=== PATIENT | female | born 1950 | race Caucasian/White ===

== ENCOUNTER 2017-02-19 11:19 | Observation (INO) | payer OTHER ==
[~2017-02-19] VITALS: Ht 160 cm; Wt 104.3 kg
[2017-02-19] VITALS (10 sets, daily range): BP systolic 90–161; BP diastolic 54–85
[~2017-02-19 11:19] MED LIST: ALLO300T PO; ASCO100T4 PO; ASPI-630 PO; ATEN25TA PO; ATOR20TA PO; CA C1TAB38 PO; CHOL200044 PO; CYAN100072 PO; HYDR-2758 PO; HYDR-965 PO; LACT1CAP8 PO; METF500T4 PO; MULT1TAB6 PO; NAPR500T8 PO; OMEG1CAP28 PO; PROAIR HFA8.5 GM IH; VIT1TABL34 PO
[2017-02-19] MEDS ORDERED: IV NORMAL SALINE 1000ML BAG 1,000 ML IV SCH (11:34)
[2017-02-19] MEDS ORDERED: BACITRACIN 50,000 UNIT in IV NORMAL SALINE 250ML 250 ML IRR SCH (11:45)
[2017-02-19 11:54] LABS: HEMATOCRIT 45.6 % (36.0-47.0); HEMOGLOBIN 15.2 g/dL (12.0-15.5); RED BLOOD COUNT 4.86 x10^6/uL (3.50-5.40); RED CELL DISTRIBUTION WIDTH 13.7 % (11.5-14.5); WHITE BLOOD COUNT 11.2 x10^3/uL (4.0-11.0)
[2017-02-19 11:59] LABS: PROTHROMBIN TIME PATIENT 12.3 SEC (11.7-14.0)
[2017-02-19] MEDS ORDERED: LOSA50TA6 PO (12:06)
[2017-02-19] MEDS ORDERED: METO25TA4 PO (12:06)
--- NOTE | 2017-02-19 13:09 | EKG ---
[facility] [address] [place] [address] Test Date: 2017-02-19 Test Time: 12:35:38 Pat Name: BELINDA CARRENO Department: Room: Gender: F Bottling Room Worker: JESSICA : 1950 Requested By: WILL HERNANDEZ Order Number: [id number] Reading MD: Measurements Intervals [place] Rate: 75 P: 46 VT: 162 QRS: 20 QRSD: 84 T: 36 QT: 382 QTc: 429 Interpretive Statements SINUS RHYTHM NO SPECIFIC ECG ABNORMALITIES RI6.01 No previous ECG available for comparison
[2017-02-19] MEDS ORDERED: LIDOCAINE 2%/EPI 1:100,000 20 ML VIAL. ONE (13:50)
[2017-02-19] MEDS ORDERED: fentaNYL PF VIAL 250 MCG/5 ML VIAL ONE (14:07)
[2017-02-19] MEDS ORDERED: MIDAZOLAM HCL/PF 5 MG/5 ML VIAL. ONE (14:07)
[2017-02-19] MEDS ORDERED: MIDAZOLAM HCL/PF 5 MG/5 ML VIAL. IV ONE (14:45)
[2017-02-19] MEDS ORDERED: LIDOCAINE 2%/EPI 1:100,000 20 ML VIAL. IJ ONE (14:45)
[2017-02-19] MEDS ORDERED: fentaNYL PF VIAL 250 MCG/5 ML VIAL IV ONE (14:45)
[2017-02-19] MEDS ORDERED: MIDAZOLAM HCL/PF 2 MG/2 ML VIAL. ONE (14:54)
[2017-02-19] MEDS ORDERED: BACITRACIN 50,000 UNIT in IV NORMAL SALINE 250ML 250 ML IRR ONE (15:15)
[2017-02-19] MEDS ORDERED: HYDR-2758 PO (15:19)
[2017-02-19] MEDS ORDERED: MIDAZOLAM HCL/PF 2 MG/2 ML VIAL. IV ONE (15:30)
--- NOTE | 2017-02-19 16:26 | PDOC ---
MODERATE SEDATION ASSESSMENT RISKS/ALTERNATIVES Risks/Alternatives Risks and alternatives of this type of sedation and procedure discussed with: RISK/ALTERNATIVES: Patient H & P ON CHART H & P H & P on chart and reviewed for co-morbid conditions and appropriate labs. H&P ON CHART: Yes STATUS PREG STATUS ASSESSED: N/A MEDS/ALLERGIES REVIEWED Meds/Allergies Reviewed Medications and Allergies including time and route of recently administered narcotics and sedatives. MEDS/ALLERGIES REVIEWED: Yes ASA RATING ASA RATING: II AIRWAY ASSESSMENT Airway Assessment Airway patency, oral function limitations, presence of caps, crowns, dentures, partials, and ability to extend neck assessed. AIRWAY ASSESSMENT: Yes MALLAMPATI SCORE MALLAMPATI SCORE: II PRE-SEDATION ASSESSMENT PRE-SEDATION ASSESSMENT: Yes WILL HERNANDEZ MD Feb 19, 2017 16:26
--- NOTE | 2017-02-19 16:36 | CARD ---
APPROVED REPORT PROCEDURES Successful implantation of Biotronik dual-chamber permanent pacemaker INDICATIONS Sick sinus syndrome with significant pauses PROCEDURE After explaining the risks, benefits, and alternative options, informed consent was obtained from the patient. The patient was brought to the cardiac catheterization lab and the left chest and shoulder were prepp ed and draped in a sterile manner. 30 mL of 2% lidocaine was infiltrated into the skin and subcutaneous tissues for local anesthesia. An incision was made over the left infraclavicular fossa and using blunt dissection and cautery a pacem geraldo pocket was created. Venous access was obtained in the left subclavian vein and 8 and 6 Bengali sh eaths were inserted. Subsequently, a Biotronik bipolar active fixation right ventricular lead model Solia, serial #[id number] was advanced under fluoroscopy guidance and the tip was positioned in the right ventricle apex. Fol lowing this, a Biotronik bipolar active fixation right atrial lead model solia serial #[id number] was p ositioned in the right atrial appendage under fluoroscopy guidance. The leads were secured into place and attached to a Biotronik dual-chamber permanent pacemaker generator model Etrinsa 8 DR-T, serial #[id number]. This was placed in the pocket was subsequently closed in 3 layers. Hemostasis was secured. The right ventricular lead showed a sensing amplitude of 10.6 mV, impedance of 720 ohms and a thresho ld of 1 V. The right atrial lead showed a sensing amplitude of 4.7 mV, impedance of 745 ohms and a th reshold of 0.9 V. Patient tolerated the procedure well. There were no immediate complications. CONCLUSION Successful implantation of Biotronik dual-chamber permanent pacemaker for symptomatic sick sinus synd jojo.
--- NOTE | 2017-02-19 17:06 | RAD ---
Indication post cardiac pacing device placement. A single view of the chest was obtained. Comparison is made to an examination 01/22/2008. There is mild cardiomegaly. There is no gross congestive heart failure. A consolidated pneumonia is not seen. There is a bipolar cardiac pacing device. No complication is seen and specifically there is no evidence of pneumothorax. IMPRESSION: Bipolar polar cardiac pacing device. No complication seen. No focal process is seen in the chest. Moderate enlargement of the cardiac silhouette
[2017-02-19] MEDS: HYDROcodone/APAP 5/325MG 1 TAB TABLET PO PRN ×2 (20:01→21:23)
[2017-02-20] MEDS: HYDROcodone/APAP 5/325MG 1 TAB TABLET PO PRN ×2 (01:35→07:59)
[2017-02-20 03:30] VITALS: BP 179/87
[2017-02-20 07:00] VITALS: BP 170/85
[2017-02-20 08:50] VITALS: BP 170/85
[2017-02-20] MEDS ORDERED: LOSARTAN POTASSIUM 50 MG TABLET. PO SCH (09:00)
[2017-02-20] MEDS ORDERED: METOPROLOL TART IMMED RELEASE 25 MG TABLET. PO SCH (09:00)
--- NOTE | 2017-02-20 09:05 | RAD ---
PA AND LATERAL CHEST RADIOGRAPH Clinical Indication: 1 day post pacemaker implantation. Comparison: AP chest 02/19/2017. Findings: Left chest dual chamber pacer. Stable cardiomegaly. Pulmonary vasculature is normal. The lungs are clear. No pleural effusion or pneumothorax is seen. There is no acute bone abnormality. IMPRESSION: No acute cardiopulmonary process.
--- NOTE | 2017-02-20 09:28 | PDOC3 ---
KWABENA SENIOR DELIVERY ARCHITECT 02/20/17 0928: Discharge Summary Visit Information Date of Admission: Feb 19, 2017 Date of Discharge: Feb 20, 2017 Admitting Diagnosis Comment: 1. 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 HTN, benign essential 4. HLD 5. fibromyalgia 6. tobacco abuse Final Diagnosis 1. 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 HTN, benign essential 4. HLD 5. fibromyalgia 6. tobacco abuse Brief Hospital Course Allergies Allergies Coded Allergies Type Severity Reaction Last Updated Verified No Known Drug Allergies 09/20/14 No Vital Signs Vital Signs Date Time Temp Pulse Resp B/P (MAP) Pulse Ox O2 Delivery O2 Flow Rate FiO2 02/20/17 08:50 170/85 02/20/17 07:59 Room Air 02/20/17 07:00 97.7 113 19 94 1.5 97.7 Lab Results Laboratory Tests Test 02/19/17 11:40 White Blood Count 11.2 x10^3/uL (4.0-11.0) Red Blood Count 4.86 x10^6/uL (3.50-5.40) Hemoglobin 15.2 g/dL (12.0-15.5) Hematocrit 45.6 % (36.0-47.0) Mean Corpuscular Volume 94 fL (79-100) Mean Corpuscular Hemoglobin 31 pg (25-35) Mean Corpuscular Hemoglobin Concent 33 g/dL (31-37) Red Cell Distribution Width 13.7 % (11.5-14.5) Platelet Count 305 x10^3/uL (140-400) Prothrombin Time 12.3 SEC (11.7-14.0) Prothromb Time International Ratio 1.0 (0.8-1.1) Activated Partial Thromboplast Time 29 SEC (24-38) Laboratory Tests Test 02/19/17 11:40 White Blood Count 11.2 x10^3/uL (4.0-11.0) Red Blood Count 4.86 x10^6/uL (3.50-5.40) Hemoglobin 15.2 g/dL (12.0-15.5) Hematocrit 45.6 % (36.0-47.0) Mean Corpuscular Volume 94 fL (79-100) Mean Corpuscular Hemoglobin 31 pg (25-35) Mean Corpuscular Hemoglobin Concent 33 g/dL (31-37) Red Cell Distribution Width 13.7 % (11.5-14.5) Platelet Count 305 x10^3/uL (140-400) Prothrombin Time 12.3 SEC (11.7-14.0) Prothromb Time International Ratio 1.0 (0.8-1.1) Activated Partial Thromboplast Time 29 SEC (24-38) Brief Hospital Course Ms. Collins is a 67 old female with SSS with significant pauses of at least 3.5 seconds demonstrated on Holter monitoring done for palpitations. ? if related to KUSHAL and patient reporting dizziness symptoms during the night. PPM implantation advised and R/B/A discussed. Patient elected to proceed with PPM implantation and underwent implantation of Biotronik Etrinsa 8 DR-T dual chamber pacemaker on 02/19/2017. Monitored overnight without events. Interrogation this a.m. demonstrated no significant changes in lead impedances. CXR without ptx this a.m. Dressing removed from wound and site C/D/I without ecchymosis, edema and minimal erythema; steri-strips intact. PPM precautions and after-care discussed with patient. Discharge Information Condition at Discharge: Stable Follow Up: Weeks (one week with wound check; PCP in 7 - 10 days) Disposition/Orders: D/C to Home Scheduled Allopurinol (Allopurinol), 300 MG PO DAILY, (Reported) Atorvastatin Calcium (Lipitor), 1 TAB PO DAILY, (Reported) Losartan Potassium (Losartan Potassium), 50 MG PO BID, (Reported) Metformin Hcl (Metformin Hcl), 1 TAB PO DAILY, (Reported) Metoprolol Tartrate (Metoprolol Tartrate), 25 MG PO BID, (Reported) Scheduled PRN Hydrocodone Bit/Acetaminophen (Hydrocodone-Apap 5-325 ), 2 TAB PO QHS PRN for PAIN, (Reported) Patient Instructions Patient Instructions Must know & what to expect after device implant: 1. Your surgical dressing should be removed prior to discharge from the hospital, but allow the steri- strips to fall off naturally. 2. Activity restrictions: DO NOT raise arm above shoulder level, lift anything heavier than a gallon of milk, and no push or pull motions such as vacuuming/lawn mowing, no swinging motions (golf), etc for 4 weeks. 3. It is OK to use a cell phone or other electronic devices just be sure you do not store it in a breast pocket on the side where the device was placed. 4. Device will be interrogated prior to your discharge from the hospital and then every 3 months for defibrillators and every 6 months for pacemakers. You may be asked to have your device checked remotely from home as well, but this will depend on your particular physicians preference. 5. You may remove the arm immobilizer the day after device placement. Wear the arm immobilizer/splint at night (during sleep times) for 2 week to prevent unintended arm movement that can cause lead dislodgement. 6. Do not drive for one week as the task of driving may lead to unintended arm motion that may cause lead dislodgement. The seatbelt will also rub against the incision site & cause irritation. 7. It is our recommendation that you utilize Tylenol at home for pain control. You need to call our office if you are having uncontrollable pain at the incision site. 8. Keep your incision clean and dry. It is OK to shower. DO NOT submerge in bath, pool, or hot tub, until cleared by your doctor, as this could lead to increase risk of infection.. It is OK to use regular soap just do not scrub the incision site. Water spray from shower should not directly hit the incision. Be sure to blot dry not rub. 9. Inspect your incision daily. If you notice any increased redness, swelling , or drainage, or if you start running a fever, call the office immediately. The number is [phone]. 10. For women, if you need to protect against irritation from the bra straps, you can place a piece of gauze over the incision site for cushion. Please be sure to tape it loosely to allow air to the site & remove the gauze when you remove the bra. 11. Be sure to carry your device identification information card in your wallet/purse at all times. 12. It is OK to go through security at the airport with your device, but be sure to let the TSA know prior to proceeding as the security settings change depending on varying factors. Please do whatever is requested by security at that time. 13. Some of the newer devices may be MRI compatible but, currently, the use of these devices is not widespread, so you likely will not be able to have an MRI. Please clarify this with your physician. Call the office at [phone] for any questions or concerns. LORELEI ROYAL MD 02/20/17 1007: Discharge Summary Brief Hospital Course Brief Hospital Course Pt. seen and examined. Agree with above GLOBAL RISK MANAGEMENT DIRECTOR note. 67 y.o woman with SSS presented for pacer implant. Did well overnight. No acute issues. L shoulder incision c/d/i. CXR reviewed. atrial lead with a little bit of lead slack loss but interrogation wnl. Ok to DC today. Discharge Information Scheduled Allopurinol (Allopurinol), 300 MG PO DAILY, (Reported) Atorvastatin Calcium (Lipitor), 1 TAB PO DAILY, (Reported) Losartan Potassium (Losartan Potassium), 50 MG PO BID, (Reported) Metformin Hcl (Metformin Hcl), 1 TAB PO DAILY, (Reported) Metoprolol Tartrate (Metoprolol Tartrate), 25 MG PO BID, (Reported) Scheduled PRN Hydrocodone Bit/Acetaminophen (Hydrocodone-Apap 5-325 ), 2 TAB PO QHS PRN for PAIN, (Reported) KWABENA SENIOR APRN Feb 20, 2017 09:28 LORELEI ROYAL MD Feb 20, 2017 10:07
== END 2017-02-20 11:35 | disposition home or self-care (01) ==
LOC: CCL 11:19 → 2 NORTH 14:15
PROVIDERS: ADMIT Internal Medicine Cardiovascular Disease; ATTEND Internal Medicine Cardiovascular Disease
DX: I49.5 Sick sinus syndrome (principal); E11.49 Type 2 diabetes mellitus with other diabetic neurological complication; I10 Essential (primary) hypertension; E78.5 Hyperlipidemia, unspecified; M79.7 Fibromyalgia; Z72.0 Tobacco use
CPT/HCPCS: 33208; 36415; 71010; 71020; 85027; 85610; 85730; 93005; 96365; 96366; 96368; 96375; 99152; 99153; C1785; C1892; C1898; G0378; G0379; J0690; J2250; J3010; J3490; J7030; J7050

== ENCOUNTER → 2017-03-27 | Outpatient (CLI) | payer OTHER ==
[~2017-03-27] MED LIST changes: +LOSA50TA6 PO; +METO25TA4 PO
--- NOTE | 2017-03-29 08:20 | RAD ---
DATE: 03/27/2017 EXAM: DIGITAL SCREEN BILAT W/CAD HISTORY: Routine screening COMPARISON: 01/30/2012 This study was interpreted with the benefit of Computerized Aided Detection (CAD). The breast parenchyma is primarily fatty replaced. Breast parenchyma level density A. FINDINGS: No new or enlarging breast densities are seen. There are a few stable microcalcifications in the right breast. No suspicious microcalcifications have developed. IMPRESSION: Stable mammograms without evidence of malignancy. BI-RADS CATEGORY: 2 BENIGN FINDING(S) RECOMMENDED FOLLOW-UP: 12M 12 MONTH FOLLOW-UP PQRS compliance statement: Patient information was entered into a reminder system with a target due date for the next mammogram. Mammography is a sensitive method for finding small breast cancers, but it does not detect them all and is not a substitute for careful clinical examination. A negative mammogram does not negate a clinically suspicious finding and should not result in delay in biopsying a clinically suspicious abnormality. "Our facility is accredited by the [employer] Mammography Program."
== END | disposition home or self-care (01) ==
LOC: MAMMO 08:26
PROVIDERS: ATTEND Family Medicine
DX: Z12.31 Encounter for screening mammogram for malignant neoplasm of breast (principal)
CPT/HCPCS: G0202; 77067

== ENCOUNTER → 2018-04-09 | Outpatient (CLI) | payer OTHER | END | disposition home or self-care (01) | LOC: MAMMO 08:34 | DX: Z12.31 Encounter for screening mammogram for malignant neoplasm of breast (principal); I10 Essential (primary) hypertension; E11.9 Type 2 diabetes mellitus without complications; E78.5 Hyperlipidemia, unspecified; E78.00 Pure hypercholesterolemia, unspecified; J44.9 Chronic obstructive pulmonary disease, unspecified; Z79.4 Long term (current) use of insulin; Z87.891 Personal history of nicotine dependence; Z90.710 Acquired absence of both cervix and uterus | CPT/HCPCS: 77063; 77067 ==

== ENCOUNTER → 2018-05-12 | Outpatient (CLI) | payer OTHER ==
[~2018-05-12] MED LIST changes: -LOSA50TA6 PO; +LOSA50TA7 PO; +METF500T16 PO; -METF500T4 PO
--- NOTE | 2018-05-12 13:40 | CARD ---
MR#: [id number] Date of Study: 05/12/2018 Ordering Physician: WILL HERNANDEZ, Referring Physician: WILL HERNANDEZ Tech: Madina Banks RDCS APPROVED REPORT EXAM: Two-dimensional and M-mode echocardiogram with Doppler and color Doppler. Other Information Quality : Fair INDICATION Sick Sinus Syndrome Surgery/Intervention Pacemaker: Date: 02/13 2D DIMENSIONS RVDd2.3 (2.9-3.5cm)Left Atrium(2D)3.9 (1.6-4.0cm) IVSd1.0 (0.7-1.1cm)Aortic Root(2D)2.8 (2.0-3.7cm) LVDd4.7 (3.9-5.9cm)LVOT Diameter2.2 (1.8-2.4cm) PWd1.0 (0.7-1.1cm)LVDs3.7 (2.5-4.0cm) FS (%) 27.0 %SV45.6 ml LVEF(%)55.0 (>50%) Aortic Valve AoV Peak Fortino.131.4cm/sAoV VTI25.2cm AO Peak GR.6.9mmHgLVOT Peak Fortino.115.8cm/s AO Mean GR.4mmHgAVA (VMAX)3.32cm2 KEON (VTI)3.80cm2 Mitral Valve MV E Kmqqwbar06.0cm/sMV DECEL RUEV893gz MV A Ydmyigdt558.8cm/sE/A Ratio0.7 Tricuspid Valve TR P. Ggsosssa736bg/sRAP MZHCVFKK9xwWh TR Peak Gr.74abZyDVVB79ulFy Pulmonary Vein S1 Fdpbvwqc74.2cm/sD2 Amqhtnuf81.9cm/s LEFT VENTRICLE The left ventricle is normal size. There is normal left ventricular wall thickness. The left ventricu lar systolic function is normal and the ejection fraction is within normal range. The Ejection Fracti on is 55-60%. There is normal LV segmental wall motion. Transmitral Doppler flow pattern is Grade I-a bnormal relaxation pattern. RIGHT VENTRICLE The right ventricle is normal size. The right ventricular systolic function is normal. There is a pac emaker lead in the right ventricle. ATRIA The left atrium size is normal. The right atrium size is normal. A pacemaker is seen in the right atr ium consistent with history. The interatrial septum is intact with no evidence for an atrial septal d efect or patent foramen ovale as noted on 2-D or Doppler imaging. AORTIC VALVE The aortic valve is calcified but opens well. Doppler and Color Flow revealed no significant aortic r egurgitation. There is no significant aortic valvular stenosis. MITRAL VALVE The mitral valve is calcified but opens well. There is no evidence of mitral valve prolapse. There is no mitral valve stenosis. Doppler and Color-flow revealed trace mitral regurgitation. TRICUSPID VALVE The tricuspid valve is normal in structure and function. Doppler and Color Flow revealed physiologica l tricuspid regurgitation. The PA pressure was estimated at 31 mmHg. There is no tricuspid valve sten osis. PULMONIC VALVE The pulmonic valve is not well visualized. Doppler and Color Flow revealed no pulmonic valvular regur gitation. There is no pulmonic valvular stenosis. GREAT VESSELS The aortic root is normal in size. The ascending aorta is normal in size. The IVC is normal in size a nd collapses >50% with inspiration. PERICARDIAL EFFUSION There is no evidence of significant pericardial effusion. Critical Notification Critical Value: No <Conclusion> The left ventricular systolic function is normal and the ejection fraction is within normal range. Th e Ejection Fraction is 55-60%. There is normal LV segmental wall motion. There is a pacemaker lead in the right ventricle. Signed by : Ean Avalos, Electronically Approved : 05/12/2018 13:39:36
== END | disposition home or self-care (01) ==
LOC: ECHO 12:51
PROVIDERS: ATTEND Internal Medicine Cardiovascular Disease
DX: I49.5 Sick sinus syndrome (principal); Z87.891 Personal history of nicotine dependence; Z79.899 Other long term (current) drug therapy
CPT/HCPCS: 93306

== ENCOUNTER → 2019-04-10 | Outpatient (CLI) | payer OTHER ==
[~2019-04-10] MED LIST changes: +ALBU2.5V8 IH; -HYDR-2758 PO; +HYDR-2761 PO; +HYDR-3165 PO; -HYDR-965 PO; +LOSA-73 PO; -LOSA50TA7 PO; -PROAIR HFA8.5 GM IH
--- NOTE | 2019-04-10 12:53 | RAD ---
Clinical indications: Near syncope. R 55. Symptoms have been ongoing for several months. The patient has passed out several times and is progressively getting worse. History of hypertension and hyperlipidemia and diabetes and smoking. Duplex sonography of the cervical portion of both carotid arteries was performed including color flow imaging and spectral waveform analysis with flow velocity measurement and bowen scale evaluation. Right side: Peak systolic flow velocity of the CCA is 84 cm/sec. Peak systolic flow velocity of the ICA is 99 cm/sec. Thus, the ICA/CCA ratio is 1.2. Peak end diastolic flow velocity of the ICA is 35 cm/sec. The peak systolic velocity of the ECA is 70 cm/sec. Left side: Peak systolic flow velocity of the CCA is 78 cm/sec. Peak systolic flow velocity of the ICA is 98 cm/sec. Thus, the ICA/CCA ratio is 1.3. Peak end diastolic flow velocity of the ICA is 30 cm/sec. Peak systolic flow velocity of the ECA is 69 cm/sec. No significant plaque formation is identified. Antegrade vertebral flow is seen bilaterally. The measurements were made using the NASCET criteria. Impression:No significant plaque formation is identified within either carotid bifurcation Electronically signed by: Emre Hastings MD (04/10/2019 12:50 PM) [facility]
== END | disposition home or self-care (01) ==
LOC: US 09:01
PROVIDERS: ATTEND Family Medicine
DX: R55 Syncope and collapse (principal); I10 Essential (primary) hypertension; E78.5 Hyperlipidemia, unspecified; E11.9 Type 2 diabetes mellitus without complications; Z87.891 Personal history of nicotine dependence
CPT/HCPCS: 93880

== ENCOUNTER → 2019-04-15 | Outpatient (CLI) | payer OTHER ==
--- NOTE | 2019-04-17 12:24 | RAD ---
DATE: 04/17/2019. EXAM: MAMMO ULISES SCREENING BILATERAL HISTORY: Routine screening. COMPARISON: Previous mammogram from 2017 2016. This study was interpreted with the benefit of Computerized Aided Detection (CAD). FINDINGS: Breast Density: SCATTERED The breast parenchyma shows scattered fibroglandular densities. Breast parenchyma level B. The skin and nipples are within normal limits. No suspicious calcifications, spiculated mass or area of architectural distortion. IMPRESSION: No mammographic evidence . BI-RADS CATEGORY: 2 BENIGN FINDING(S) RECOMMENDED FOLLOW-UP: 12M 12 MONTH FOLLOW-UP PQRS compliance statement: Patient information was entered into a reminder system with a target due date for the next mammogram. Mammography is a sensitive method for finding small breast cancers, but it does not detect them all and is not a substitute for careful clinical examination. A negative mammogram does not negate a clinically suspicious finding and should not result in delay in biopsying a clinically suspicious abnormality. "Our facility is accredited by the [employer] Mammography Program."
== END | disposition home or self-care (01) ==
LOC: MAMMO 08:35
PROVIDERS: ATTEND Family Medicine
DX: Z12.31 Encounter for screening mammogram for malignant neoplasm of breast (principal)
CPT/HCPCS: 77063; 77067

== ENCOUNTER → 2019-09-18 | Outpatient (CLI) | payer MEDICARE ==
--- NOTE | 2019-09-18 10:01 | CARD ---
MR#: [id number] Date of Study: 09/18/2019 Ordering Physician: WILL MEJIA, Referring Physician: WILL MJEIA Tech: Marcela West LEYDI APPROVED REPORT EXAM: Two-dimensional and M-mode echocardiogram with Doppler and color Doppler. Other Information Quality : FairHR: 71bpm Rhythm : NSR INDICATION SSS 2D DIMENSIONS RVDd3.2 (2.9-3.5cm)Left Atrium(2D)4.2 (1.6-4.0cm) IVSd1.5 (0.7-1.1cm)Aortic Root(2D)2.6 (2.0-3.7cm) LVDd4.3 (3.9-5.9cm)LVOT Diameter2.1 (1.8-2.4cm) PWd1.2 (0.7-1.1cm)LVDs3.1 (2.5-4.0cm) FS (%) 27.8 %SV44.2 ml LVEF(%)54.1 (>50%) M-Mode DIMENSIONS Left Atrium(MM)4.44 (2.5-4.0cm)Aortic Root3.27 (2.2-3.7cm) Aortic Valve AoV Peak Fortino.133.6cm/sAoV VTI29.9cm AO Peak GR.7.8mmHgLVOT Peak Fortino.113.7cm/s AO Mean GR.4mmHgAVA (VMAX)2.96cm2 KEON (VTI)3.00cm2 Mitral Valve MV E Avzfhdgu15.2cm/sMV DECEL XQXW589ju MV A Svmgangh583.2cm/sE/A Ratio0.6 Pulmonary Valve PV Peak Spxwlwax756.8cm/s Tricuspid Valve TR P. Xtzavpfx441fx/sRAP AWOEVNVJ5woHn TR Peak Gr.61reUhGYJO85huNe LEFT VENTRICLE The left ventricle is normal size. There is mild concentric left ventricular hypertrophy. The left ve ntricular systolic function is normal. The Ejection Fraction is 55-60%. There is normal LV segmental wall motion. Transmitral Doppler flow pattern is Grade I-abnormal relaxation pattern. RIGHT VENTRICLE The right ventricle is normal size. There is normal right ventricular wall thickness. The right ventr icular systolic function is normal. ATRIA The left atrium is mildly dilated. The right atrium size is normal. The interatrial septum is intact with no evidence for an atrial septal defect or patent foramen ovale as noted on 2-D or Doppler imagi ng. AORTIC VALVE The aortic valve is trileaflet. The aortic valve is mildly calcified. Doppler and Color Flow revealed no significant aortic regurgitation. There is no significant aortic valvular stenosis. MITRAL VALVE The mitral valve is normal in structure and function. There is no evidence of mitral valve prolapse. There is no mitral valve stenosis. Doppler and Color Flow revealed no mitral valve regurgitation note d. TRICUSPID VALVE The tricuspid valve is normal in structure and function. Doppler and Color Flow revealed trace tricus pid regurgitation. The PA pressure was estimated at 17 mmHg. There is no tricuspid valve prolapse or vegetation. There is no tricuspid valve stenosis. PULMONIC VALVE The pulmonic valve is not well visualized. GREAT VESSELS The aortic root is normal in size. The ascending aorta is normal in size. The IVC is normal in size a nd collapses >50% with inspiration. PERICARDIAL EFFUSION There is no evidence of significant pericardial effusion. Critical Notification Critical Value: No <Conclusion> The left ventricular systolic function is normal. The Ejection Fraction is 55-60%. There is normal LV segmental wall motion. Transmitral Doppler flow pattern is Grade I-abnormal relaxation pattern. Trace tricuspid regurgitation. The PA pressure was estimated at 17 mmHg. There is no evidence of significant pericardial effusion. Signed by : Will Mejia, Electronically Approved : 09/18/2019 10:00:52
== END | disposition home or self-care (01) ==
LOC: ECHO 08:13
PROVIDERS: ATTEND Internal Medicine Cardiovascular Disease
DX: I35.8 Other nonrheumatic aortic valve disorders (principal); I49.5 Sick sinus syndrome; I51.7 Cardiomegaly
CPT/HCPCS: 93306

== ENCOUNTER → 2020-04-16 | Outpatient (CLI) | payer MEDICARE, OTHER ==
--- NOTE | 2020-04-17 17:21 | RAD ---
EXAM: BILATERAL DIGITAL 3D SCREENING MAMMOGRAPHY. HISTORY: Routine mammographic screening. TECHNIQUE: Bilateral digital 3D and tomographic images were obtained in CC and MLO projections. Computer-aided detection was not currently available. COMPARISON: 04/15/2019. COMPOSITION: B. There are scattered areas of fibroglandular density. FINDINGS: There are no suspicious masses, microcalcifications or architectural distortion. The parenchymal pattern is stable. Scattered aortic calcifications are benign. BI-RADS CATEGORY 2: Benign. RECOMMENDATION: 1. Routine screening mammography in one year. If mammography demonstrates dense breast tissue (heterogenously dense or extremely dense, category C or D), which could hide abnormalities, and if other risk factors for breast cancer have been identified, supplemental screening tests that may be suggested by the ordering physician may be of benefit. Dense breast tissue, in and of itself, is a relatively common condition. Therefore, this information is not provided to cause undue concern, but rather to raise awareness and to promote discussion with the referring physician regarding the presence of other risk factors, in addition to dense breast tissue. The results of this mammography examination is provided to the patient and referring physician. The patient should contact their referring physician if any questions or concerns exist regarding this report. PQRS compliance statement - Patient information was entered into a reminder system with a target due date for the next mammogram. "Our facility is accredited by the [employer] Mammography Program." Electronically signed by: Sherry Melgar MD (04/17/2020 5:18 PM) [id number]
== END | disposition home or self-care (01) ==
LOC: MAMMO 10:41
PROVIDERS: ATTEND Family Medicine
DX: Z12.31 Encounter for screening mammogram for malignant neoplasm of breast (principal); N64.89 Other specified disorders of breast
CPT/HCPCS: 77063; 77067

== ENCOUNTER → 2020-05-08 | Outpatient (CLI) | payer OTHER ==
[~2020-05-08] MED LIST changes: +REGADENOSON 0.4 MG/5 ML DISP.SYRIN. IV ONE
--- NOTE | 2020-05-09 14:11 | CARD ---
MR#: [id number] Date of Study: 05/09/2020 Ordering Physician: WILL HERNANDEZ, Referring Physician: WILL HERNANDEZ Tech: Madina Banks RDCS APPROVED REPORT EXAM: Two-dimensional and M-mode echocardiogram with Doppler and color Doppler. Other Information Quality : Fair INDICATION Sick Sinus Syndrome-Pacemaker 2D DIMENSIONS RVDd2.4 (2.9-3.5cm)Left Atrium(2D)4.4 (1.6-4.0cm) IVSd1.0 (0.7-1.1cm)Aortic Root(2D)3.2 (2.0-3.7cm) LVDd4.4 (3.9-5.9cm)LVOT Diameter2.5 (1.8-2.4cm) PWd1.0 (0.7-1.1cm)LVDs3.5 (2.5-4.0cm) FS (%) 27.0 %SV35.8 ml LVEF(%)55.0 (>50%) Aortic Valve AoV Peak Fortino.142.1cm/sAoV VTI28.6cm AO Peak GR.8.1mmHgLVOT Peak Fortino.143.9cm/s AO Mean GR.4mmHgAVA (VMAX)5.05cm2 KEON (VTI)4.90cm2 Mitral Valve MV E Bosgldyc65.3cm/sMV DECEL [id number] MV A Zeakynjt269.7cm/sE/A Ratio0.6 Pulmonary Vein S1 Kzhnwhid70.4cm/sD2 Ktroxlvq27.8cm/s LEFT VENTRICLE The left ventricle is normal size. There is normal left ventricular wall thickness. The left ventricu lar systolic function is normal and the ejection fraction is within normal range. The Ejection Fracti on is 55-60%. There is normal LV segmental wall motion. Transmitral Doppler flow pattern is Grade I-a bnormal relaxation pattern. RIGHT VENTRICLE The right ventricle is normal size. The right ventricular systolic function is normal. There is a pac emaker lead in the right ventricle. ATRIA The left atrium is mildly dilated. The right atrium size is normal. A pacemaker is seen in the right atrium consistent with history. The interatrial septum is intact with no evidence for an atrial septa l defect or patent foramen ovale as noted on 2-D or Doppler imaging. AORTIC VALVE The aortic valve is calcified but opens well. Doppler and Color Flow revealed no significant aortic r egurgitation. There is no significant aortic valvular stenosis. MITRAL VALVE The mitral valve is normal in structure and function. There is no evidence of mitral valve prolapse. There is no mitral valve stenosis. Doppler and Color Flow revealed no mitral valve regurgitation note d. TRICUSPID VALVE The tricuspid valve is normal in structure and function. Doppler and Color Flow revealed no tricuspid valve regurgitation noted. There is no tricuspid valve stenosis. PULMONIC VALVE The pulmonic valve is not well visualized. Doppler and Color Flow revealed trace pulmonic valvular re gurgitation. There is no pulmonic valvular stenosis. GREAT VESSELS The aortic root is normal in size. The ascending aorta is normal in size. The IVC is normal in size a nd collapses >50% with inspiration. PERICARDIAL EFFUSION There is no evidence of significant pericardial effusion. Critical Notification Critical Value: No <Conclusion> The left ventricular systolic function is normal and the ejection fraction is within normal range. Th e Ejection Fraction is 55-60%. There is normal LV segmental wall motion. There is a pacemaker lead in the right ventricle. Signed by : Ean Avalos, Electronically Approved : 05/09/2020 14:11:03
--- NOTE | 2020-05-09 14:15 | RAD ---
MR#: [id number] Date of Study: 05/09/2020 Ordering Physician: WILL HERNANDEZ, Referring Physician: GORAN PAIGE Tech: FLORINA Medellin, ARRT (R) (N) APPROVED REPORT Test Type: Pharmacological Stress Nurse/Tech: Brittani Keith R.N. Test Indications: sick sinus syndrome Cardiac History: Family history, Hypertension, Diabetes, pacemaker Medications: See Electronic Medical Record Medical History: See Electronic Medical Record Resting ECG: Paced Resting Heart Rate: 80 bpm Resting Blood Pressure: 139/74mmHg Pretest Chest Pain: No chest pain Nurse/Tech Notes S1S2, lung sounds clear in lt and very diminished in rt base Consent: The procedure was explained to the patient in lay terms. Informed consent was witnessed. Markus eout was entered into [facility]. History and Stress Test performed by Tonya HarrisN. Pharm. Details Pharmacologic stress testing was performed using 0.4mg per 5ml of regadenoson given intravenously ove r 7-10 seconds. Stress Symptoms Dyspnea, Nausea POST EXERCISE Reason for Termination: Infusion complete Target HR: 129 Max HR: 100 bpm Max Blood Pressure: 145/72mmHg Blood Pressure response to exercise: Normal blood pressure response during stress. Chest Pain: Yes. Arrhythmia: No. ST Change: No. INTERPRETATION Stress EKG Conclusion: No evidence of stress induced EKG changes. Imaging Protocol IMAGE PROTOCOL: Rest Tc-99m/stress Tc-99m 2 days Rest: Stress: Viability: Radiopharm.Tc99m SyorokrqbRp01d Sestamibi Lfkc63qUs 30.1mCi Img Date 05/09/2020 Inj-Img Wesj73ylt. 60min. Rest Admin Site:IV - Right HandAdministrator:Jasiel Lancaster RT (R)(N) Stress Admin Site: IV - Right HandAdministrator: Temitope Mobley RT (R)(N) STRESS DATA End Diast. Vol.73.0mlAv. Heart Rate65.0bpm End Syst. Vol.17.0mlCO Index BSA0.0L/min Myocardial Ofaq130.0gEject. Qajyzzjz63.0% Stress Rates Pk. Fill Rate3.51EDV/secLVtime Pk. Fill 135.48msec Pk. Empty Rate4.88ESV/secLVtime Pk. Njruf278.78msec 1/3 Pk. Fill2.24EDV/sec Stress Scores Regional WT0.00Summed WT8.00 Regional WM0.00Summed WM2.00 The rest and stress images show normal perfusion, normal contraction and thickening. LV Perf. Quant 17 Seg. SSS3.00 17 Seg. SRS1.00 17 Seg. SDS3.00 Stress Defect Extent (% LAD)0.00Rest Defect Extent (% LAD)0.00Rev. Defect Extent (% LAD)0.00 Stress Defect Extent (% LCX) 16.30Rest Defect Extent (% LCX)2.50Rev. Defect Extent (% LCX)3.80 Stress Defect Extent (% RCA)0.00Rest Defect Extent (% RCA)0.00Rev. Defect Extent (% RCA)0.00 Stress Defect Extent (% ELAINA)2.80Rest Defect Extent (% ELAINA)0.40Rev. Defect Extent (% ELAINA)0.70 Other Information Quality:Average Risk Assessment: Low Risk Conclusion 1. No evidence of EKG changes with stress testing. 2. Normal perfusion at stress/rest. 3. Low risk study. 4. EF > 60%. Signed by : Ean Avalos, Electronically Approved : 05/09/2020 14:14:51
== END | disposition home or self-care (01) ==
LOC: NM 08:09
PROVIDERS: ATTEND Internal Medicine Cardiovascular Disease
DX: I35.1 Nonrheumatic aortic (valve) insufficiency (principal); I49.5 Sick sinus syndrome; I10 Essential (primary) hypertension; Z95.1 Presence of aortocoronary bypass graft
CPT/HCPCS: 78452; A9500; 93017; 93306; J2785

== ENCOUNTER → 2021-05-31 | Outpatient (CLI) | payer OTHER ==
[~2021-05-31] MED LIST changes: -REGADENOSON 0.4 MG/5 ML DISP.SYRIN. IV ONE
--- NOTE | 2021-06-02 08:37 | RAD ---
EXAM: Bilateral digital screening mammogram with tomosynthesis. HISTORY: 71-year-old female presents for screening mammography. TECHNIQUE: Full-field digital craniocaudal and mediolateral oblique 2D and 3D tomosynthesis images of both breasts are obtained for evaluation. Computer aided detection was applied. COMPARISON: 04/06/2020, 04/15/2019, 04/09/2018 BREAST PARENCHYMAL DENSITY: Level A - Mostly fat. FINDINGS: There is no new suspicious mass, microcalcification or region of architectural distortion. There are stable tiny benign-appearing clustered microcalcifications within the superolateral right b reast. The greater than 3 year course of stability favors benignity. There are stable areas of asymme try and nodularity within both breasts. There is a left cardiac pacemaker generator, partially includ ed on the gmrlh-xr-bksq. IMPRESSION: BI-RADS Category 2: Benign finding(s). RECOMMENDATION: Annual mammography is recommended. If your mammogram demonstrates that you have dense breast tissue, which could hide abnormalities, and if you have other risk factors for breast cancer that have been identified, you might benefit from s upplemental screening tests that may be suggested by your ordering physician. Dense breast tissue, i n and of itself, is a relatively common condition. This information is not provided to cause undue c oncern, but rather to raise your awareness and to promote discussion with your physician regarding th e presence of other risk factors, in addition to dense breast tissue. A report of your mammography re sults will be sent to you and your physician. You should contact your physician if you have any ques tions or concerns regarding this report. Mammography is a sensitive method for finding small breast cancers, but it does not detect them all a nd is not a substitute for careful clinical examination. A negative mammogram does not negate a clin ically suspicious finding and should not result in delay in biopsying a clinically suspicious abnorma lity. PQRS compliance statement - Patient information was entered into a reminder system with a target due date for the next mammogram. "Our facility is accredited by the [employer] Mammography Program." Electronically signed by: Temitope Muir MD (06/02/2021 8:35 AM) [id number]
== END ==
LOC: MAMMO 08:38
PROVIDERS: ATTEND Family Medicine
DX: Z12.31 Encounter for screening mammogram for malignant neoplasm of breast (principal)
CPT/HCPCS: 77063; 77067

== ENCOUNTER → 2021-06-04 | Outpatient (CLI) | payer OTHER ==
--- NOTE | 2021-06-04 11:39 | CARD ---
MR#: [id number] Date of Study: 06/04/2021 Ordering Physician: WILL HERNANDEZ, Referring Physician: WILL HERNANDEZ Tech: Neisha Hart [facility] APPROVED REPORT EXAM: Two-dimensional and M-mode echocardiogram with Doppler and color Doppler. Other Information Quality : Technically LimitedHR: 77bpm Rhythm : NSR INDICATION COPD RISK FACTORS Hypertension Obesity Hyperlipidemia Diabetes Smoking 2D DIMENSIONS RVDd2.7 (2.9-3.5cm)Left Atrium(2D)4.4 (1.6-4.0cm) IVSd1.1 (0.7-1.1cm)Aortic Root(2D)2.5 (2.0-3.7cm) LVDd4.4 (3.9-5.9cm)LVOT Diameter2.1 (1.8-2.4cm) PWd1.1 (0.7-1.1cm)LVDs3.0 (2.5-4.0cm) FS (%) 30.1 %SV49.6 ml LVEF(%)57.7 (>50%) Aortic Valve AoV Peak Fortino.115.8cm/sAoV VTI25.3cm AO Peak GR.5.4mmHgLVOT Peak Fortino.109.0cm/s AO Mean GR.3mmHgAVA (VMAX)3.33cm2 Mitral Valve MV E Uzppcdmf60.4cm/sMV DECEL [id number] MV A Uzvhspnl396.8cm/sE/A Ratio0.7 Pulmonary Valve PV Peak Rihzpibk626.1cm/s Tricuspid Valve TR P. Zikvhzxh601fs/sTR Peak Gr.17mmHg LEFT VENTRICLE The left ventricle is normal size. There is mild concentric left ventricular hypertrophy. The left ve ntricular systolic function is normal and the ejection fraction is within normal range. Estimated eje ction fraction 60%. There is normal LV segmental wall motion. Transmitral Doppler flow pattern is Gra de I-abnormal relaxation pattern. RIGHT VENTRICLE The right ventricle is normal size. There is normal right ventricular wall thickness. The right ventr icular systolic function is normal. ATRIA The left atrium size is normal. The right atrium size is normal. The interatrial septum is intact wit h no evidence for an atrial septal defect or patent foramen ovale as noted on 2-D or Doppler imaging. AORTIC VALVE The aortic valve is grossly normal. Not well visualized. Doppler and Color Flow revealed no significa nt aortic regurgitation. There is no significant aortic valvular stenosis. MITRAL VALVE The mitral valve is normal in structure and function. There is no evidence of mitral valve prolapse. There is no mitral valve stenosis. Doppler and Color Flow revealed no mitral valve regurgitation note d. TRICUSPID VALVE The tricuspid valve is normal in structure and function. Doppler and Color Flow revealed trace tricus pid regurgitation. Estimated PAP 27 mmHg. There is no tricuspid valve stenosis. PULMONIC VALVE Doppler and Color Flow revealed mild pulmonic valvular regurgitation. There is no pulmonic valvular s tenosis. GREAT VESSELS The aortic root is normal in size. The ascending aorta is normal in size. The IVC is dilated and stephanie apses >50% with inspiration. PERICARDIAL EFFUSION There is no evidence of significant pericardial effusion. Critical Notification Critical Value: No <Conclusion> The left ventricular systolic function is normal and the ejection fraction is within normal range. E stimated ejection fraction 60%. There is normal LV segmental wall motion. Signed by : Ean Avalos, Electronically Approved : 06/04/2021 11:38:59
== END ==
LOC: ECHO 08:03
PROVIDERS: ATTEND Internal Medicine Cardiovascular Disease
DX: I37.1 Nonrheumatic pulmonary valve insufficiency (principal); I49.5 Sick sinus syndrome
CPT/HCPCS: 93306

== ENCOUNTER → 2021-06-26 | Outpatient (CLI) | payer OTHER ==
--- NOTE | 2021-06-26 14:34 | KCIC ---
Bilateral lower extremity arterial duplex ultrasound 06/26/2021 INDICATION: Claudication. Smoking history. Diabetic. COMPARISON STUDY: None Discussion: Ultrasound evaluation of the major arteries of the bilateral lower extremities was perfor med including color Doppler imaging spectral analysis. Mild areas of atherosclerotic vascular plaque are seen without high-grade visual stenosis on color Do ppler imaging. Essentially normal waveform morphology is seen throughout the major arteries of the bi lateral lower extremities. No convincing evidence of hemodynamically significant stenosis involving t he major arteries of the bilateral extremities is identified. IMPRESSION: Mild atherosclerotic vascular disease without sonographic evidence of hemodynamically sig nificant stenosis involving the major arteries of the bilateral lower extremities Electronically signed by: Jimi Espinoza MD (06/26/2021 2:31 PM) [id number]
== END ==
LOC: KCIC US 13:25
PROVIDERS: ATTEND Family Medicine
DX: I73.9 Peripheral vascular disease, unspecified (principal); I70.90 Unspecified atherosclerosis
CPT/HCPCS: 93925

== ENCOUNTER → 2021-10-20 | Outpatient (CLI) | payer MEDICARE, OTHER ==
--- NOTE | 2021-10-20 10:32 | KCIC ---
EXAM: Lumbar spine CT without contrast. HISTORY: Pain. Radiculopathy. TECHNIQUE: Computed tomographic images of the lumbar spine were obtained without contrast. Multiplana r reformatting was performed. *One or more of the following individualized dose reduction techniques were utilized for this examina tion: 1. Automated exposure control. 2. Adjustment of the mA and/or kV according to patient size. 3. Use of iterative reconstruction technique. COMPARISON: None. FINDINGS: There is mild lumbar scoliosis. There is 4 mm grade 1 anterolisthesis of L5 on S1. There is 2 mm grade 1 anterolisthesis of L3 on L4. There is 2 mm retrolisthesis of L2 on L3 and L4 on L5. The re is multilevel endplate remodeling. There are multiple endplate Schmorl's nodes. There is a vacuum phenomenon within the disc spaces at L3-L4 and L4-L5. There is multilevel advanced facet arthropathy. There is bone demineralization. There is no fracture or suspicious osseous lesion. There is a 1.9 cm right adrenal nodule. There is a 1.5 cm simple appearing superior medial right mike l cyst. There is aortobiiliac atherosclerosis. There is degenerative subchondral sclerosis and vacuum phenomenon involving the sacroiliac joints. At L1-L2, there is a disc bulge and endplate remodeling. There is moderate right and mild left facet arthropathy. There is no stenosis. At L2-L3, there is a disc bulge and endplate remodeling. There is moderate to severe bilateral facet arthropathy. There is slight retrolisthesis. There is mild central canal stenosis. At L3-L4, there is a disc bulge and endplate remodeling. There is severe right and moderate left face t arthropathy. There is mild anterolisthesis. There is vikc-lv-lxehppzn right and mild left foraminal stenosis. There is moderate central canal stenosis. At L4-L5, there is a left foraminal to extra foraminal disc osteophyte complex superimposed on a disc bulge and endplate osteophytosis. There is mild right and moderate left facet arthropathy. There is mild retrolisthesis. There is moderate right and severe left foraminal stenosis. There is moderate ce ntral canal stenosis. At L5-S1, there is a disc bulge. There is severe bilateral facet arthropathy. There is grade 1 evelyn listhesis. There is mild left foraminal stenosis. IMPRESSION: 1. Multilevel degenerative change involving the lumbar spine, described in detail above. This results in stenosis at the aforementioned levels. The central canal stenosis is most significant at L3-L4 an d L4-L5. The foraminal stenosis is most significant on the left at L4-L5. 2. Lumbar scoliosis and multilevel degenerative listhesis. 3. 1.9 cm right adrenal nodule. In the absence of prior studies to assess for interval change, follow -up with adrenal protocol CT or MRI can be performed to confirm benignity. There is also a small simp le right renal cyst. Electronically signed by: Temitope Muir MD (10/20/2021 10:30 AM) [id number]
== END ==
LOC: KCIC CT 09:51
PROVIDERS: ATTEND Family Medicine
DX: M47.26 Other spondylosis with radiculopathy, lumbar region (principal); M48.07 Spinal stenosis, lumbosacral region; M51.27 Other intervertebral disc displacement, lumbosacral region; M43.17 Spondylolisthesis, lumbosacral region; M48.8X7 Other specified spondylopathies, lumbosacral region; E27.8 Other specified disorders of adrenal gland; N28.1 Cyst of kidney, acquired; M81.8 Other osteoporosis without current pathological fracture
CPT/HCPCS: 72131

== ENCOUNTER → 2021-11-11 | Outpatient (CLI) | payer MEDICARE ==
[~2021-11-11] MED LIST changes: +AMLO-186 PO; +CETI10TA16 PO; +DEXAMETHASONE PRES.FREE 10 MG/ML VIAL. ONE; +IOHEXOL 180 MG/ML 10 ML VIAL. ONE; +OMEP20CA16 PO
--- NOTE | 2021-11-11 16:19 | PDOC4 ---
Procedure Note: ICD 10 Code: ICD 10 Code: M54.16 M51.36 M4 8.06 Procedure Note: Patient was consented for lumbar epidural steroid injection using fluoroscopic guidance. Risks were discussed including but not limited to: Bleeding, infection, possibility of epidural hematoma and subsequent neurological compromise, dural puncture, headaches, spinal cord and/or nerve damage, side effects of steroid medication, and poor results regarding pain control. Patient understands and wished to proceed. Procedure is lumbar epidural steroid injection under local anesthetic using st erile prep and drape at the L4-5 level using C-arm fluoroscopic guidance in both AP and lateral views medications injected is 20 mg dexamethasone +10mL preservative-free normal saline and 2 mL contrast- condition at discharge is stable patient tolerated procedure well had no complications. BETHANY HOANG MD Nov 11, 2021 16:19
--- NOTE | 2021-11-11 16:19 | PDOC1 ---
INITIAL PAIN CONSULT DATE OF SERVICE: DOS: DATE: 11/11/21 TIME: 16:11 CHIEF COMPLAINT: Chief Complaint: Low back and right lower extremity pain HISTORY OF PRESENT ILLNESS: 71-year-old female presents with history of pain low back and right lower extremity for many years worse over the past 1 year or so not the result of any specific injury or accident that she is aware of but getting worse with walking standing changing positions using both feet on the stairs as it is difficult to climb over the overweight on her right leg patient reports across the low back and the left side as well but mostly just in the right lower extremity patient reports tingling constant sharp and aching in the low back with numbness and tingling in the right leg posterior gluteus posterior lateral thigh lateral anterior thigh anteromedial thigh with activity patient reports is burning and aching in the back as well reports it wakes her from sleep occasionally but not every night does not affect her bowel bladder control significantly but does affect her ability to walk fairly significantly she is not use any assistive devices however currently she will use a electric scooter when one is available at a store for instance however. Patient reports she is done physical therapy and has more physical therapy ordered which is starting later this week and about 2 days also is doing exercise and has had chiropractic treatment the past which was not helpful but continues to do stretching on her own at home currently. Patient rates her disability rating 0-10 10 being worst is a 10 with family home responsibilities 7 with recreation 9 with social activity 10 with occupational activity 9 with self-care and 1 with life support activities. Patient did have an MRI scan lumbar spine which we reviewed with her today showing multilevel degenerative changes with stenosis resulting in L3-4 and L4-5 levels most significantly with foraminal stenosis most significant on the left at L4-L5. Patient reports no bowel or bladder incontinence. PAST MEDICAL HISTORY: PMH: Type 2 diabetes, arthritis, irritable bowel syndrome, hearing loss PREVIOUS SURGERIES: Past Surgical Hx: Pacemaker placement, hysterectomy, left ear tube, tonsillectomy, left foot tendon repair CURRENT MEDICATIONS: Current Meds: Active Scripts Medications Dose Route/Sig Max Daily Dose Days Date Category Amlodipine Besylate 5 Mg Tablet 5 Mg PO DAILY 11/11/21 Reported Cetirizine Hcl 10 Mg Tablet 1 Tab PO DAILY 11/11/21 Reported Omeprazole 20 Mg Capsule. 1 Cap PO DAILY 11/11/21 Reported Hydrocodone-Apap 5-325 (Hydrocodone Bit/Acetaminophen) 1 Each Tablet 2 Tab PO QHS PRN 02/19/17 Reported Metoprolol Tartrate 25 Mg Tablet 25 Mg PO BID 02/19/17 Reported Losartan Potassium 50 Mg Tablet 50 Mg PO BID 02/19/17 Reported Allopurinol 300 Mg Tablet 300 Mg PO DAILY 09/24/14 Reported Metformin Hcl 500 Mg Tablet 1 Tab PO DAILY 09/20/14 Reported ALLERGIES; Allergies: Coded Allergies: No Known Drug Allergies (Unverified , 09/20/14) FAMILY HISTORY: Family Hx: Diabetes SOCIAL HISTORY: Social Hx: Patient does not miguel alcohol does not smoke not use any illegal illicit or recreational drugs is single lives locally in [facility] REVIEW OF SYSTEMS: ROS: Positive for those items mentioned in history of present illness, all systems are reviewed, otherwise negative ,and are complete full and well-documented on patient's chart. PHYSICAL EXAM: VS: Blood pressure is 133/80 pulse 81 respirations 20 temperature 98.4 F height is 5 foot 4 inches weight is 218 pounds. PE: PHYSICAL EXAMINATION: GENERAL: The patient is awake, alert, oriented, appropriate, very pleasant in demeanor HEENT: Shows normocephalic, atraumatic. Extraocular movements are intact and symmetrical. Oral cavity: Mucous membranes moist and pink. NECK: Shows anterior throat supple without palpable lymphadenopathy noted. Swallow reflex symmetrical. CHEST: Shows normal on inspection. Breath sounds are clear bilaterally, distant but no rales rhonchi or wheezes auscultated. HEART: Shows S1, S2 clear. No murmurs auscultated. ABDOMEN: Soft, nontender, nondistended. No palpable organomegaly is noted. BACK: Shows spine grossly in the midline. Normal-appearing cervical lordotic curvature. There is moderately increased thoracic kyphosis, some flattening of the lumbar lordotic curvature. Lumbar paraspinous muscles show symmetrical on inspection, on palpation shows some moderate tenderness diffusely throughout the upper, middle and lower distribution of the paraspinous muscles bilaterally and also into the lower thoracic paraspinous musculature, firm and tender, but without specific trigger points, without radiation of pain. The patient has good rotational motion of the lumbar spine, both laterally as well as extension and flexion without significant difficulty. No tenderness over the spinous processes, sacrum or sacroiliac regions. EXTREMITIES: Lower extremities show deep tendon reflexes 1 in the patellar and tendo calcaneus tendons. Motor exam is 4 on a scale of 5 with right dorsiflexion, extension, quadriceps and hamstring flexion and back/5 on the left. Peripheral pulses are 1 posterior tibial. No peripheral edema is noted bilaterally. Lower extremities are warm and dry to touch, equal in color and appearance. Straight leg raise noted to be positive on the right about 4 degrees, left side is negative. Gaenslen's and Jason's maneuvers are negative bilaterally. The patient is able to stand, has difficulty standing from seated position needs help of the arms of the chair and walks with a significant favoring gait does appear to favor the right lower extremity fairly significantly with walking but not use any assistive device such as canes or walkers on her visit today. SKIN: Shows warm and dry, good turgor. No edema. No sores, rashes or bruising throughout. IMPRESSION: Impression: 71-year-old female with long history of low back and right lower extremity pain radicular fashion MRI scan lumbar spine as noted Diabetes type 2 Hypertension Arthritis Plan: Options were discussed with the patient getting conservative medical managements continued physical therapies interventional techniques. Patient would like to interventional techniques. We discussed a lumbar epidural steroid injection using descriptions as well as anatomical models to describe the procedure. Risks were discussed including but not limited to: Bleeding, infection, possibility of epidural hematoma and subsequent neurological compromise, dural puncture, headaches, spinal cord and/or nerve damage, side effects of steroid medication, and poor results regarding pain control. Patient understands and wished to proceed. Patient will return to the clinic in approximately 2 weeks for follow-up, was counseled as to return appoi ntment, active level, and side effect to be aware of. Procedure is lumbar epidural steroid injection under local anesthetic using sterile prep and drape at the L4-5 level using C-arm fluoroscopic guidance in both AP and lateral views medications injected is 20 mg dexamethasone +10mL preservative-free normal saline and 2 mL contrast- condition at discharge is stable patient tolerated procedure well had no complications. BETHANY HOANG MD Nov 11, 2021 16:19
== END | disposition home or self-care (01) ==
LOC: PNCL 13:47
PROVIDERS: ATTEND Anesthesiology
DX: M51.16 Intervertebral disc disorders with radiculopathy, lumbar region (principal); M48.061 Spinal stenosis, lumbar region without neurogenic claudication; M79.604 Pain in right leg; E11.9 Type 2 diabetes mellitus without complications; M19.90 Unspecified osteoarthritis, unspecified site; I10 Essential (primary) hypertension; E78.00 Pure hypercholesterolemia, unspecified; M10.9 Gout, unspecified; Z79.84 Long term (current) use of oral hypoglycemic drugs; Z87.891 Personal history of nicotine dependence; Z90.710 Acquired absence of both cervix and uterus; Z98.890 Other specified postprocedural states; Z79.899 Other long term (current) drug therapy
CPT/HCPCS: 62323; G0463; J1100; Q9965

== ENCOUNTER → 2021-12-02 | Outpatient (CLI) | payer MEDICARE ==
--- NOTE | 2021-12-02 14:22 | PDOC ---
Progress Note - Pain Clinic Date of Service: DOS: DATE: 12/02/21 TIME: 14:19 Diagnosis: Dx: Lumbar radiculopathy with lumbar degenerative disease and lumbar spinal stenosis History or Present Illness: HPI: 71-year-old female returns in follow-up status post lumbar epidural steroid injection x1. Patient reports only minimal improvement in pain for the first few days and the pain began to return fairly significantly in the low back and bilateral lower extremities patient reports the posterior gluteus posterior lateral thigh lateral anterior thighs right essentially equal to left. Patient reports that is worse with walking standing change positions stooping getting up but repetitive bending or reaching upwards above her head with increased pain in the back itself patient reports her pain is a 9-10 on scale 10 is worst over the past week 9 on average 9 its least is a 9 today patient will get sharp and stabbing can be cramping unbearable severe at times patient reports no loss of motor function but significant fatigability the bilateral lower extremity repetitive motion. Patient reports no bowel or bladder incontinence. Physical Exam: VS: Blood pressure is 130/80 pulse 79 respirations 18 temperature is 98.5 F height is 5 feet 4 inches weight is 220 pounds. PE: PHYSICAL EXAMINATION: GENERAL: The patient is awake, alert, oriented, appropriate, very pleasant in demeanor HEENT: Shows normocephalic, atraumatic. Extraocular movements are intact and symmetrical. Oral cavity: Mucous membranes moist and pink. NECK: Shows anterior throat supple without palpable lymphadenopathy noted. Swallow reflex symmetrical. CHEST: Shows normal on inspection. Breath sounds are clear bilaterally, distant but no rales or rhonchi auscultated. HEART: Shows S1, S2 clear. No murmurs auscultated. ABDOMEN: Soft, nontender, nondistended. No palpable organomegaly is noted. BACK: Shows spine grossly in the midline. Normal-appearing cervical lordotic curvature. There is slightly increased thoracic kyphosis, some minor flattening of the lumbar lordotic curvature. Lumbar paraspinous muscles show symmetrical on inspection, on palpation shows some moderate tenderness diffusely throughout the upper, middle and lower distribution of the paraspinous muscles without specific trigger points, without radiation of pain. The patient has good rotational motion of the lumbar spine, both laterally as well as extension and flexion without significant difficulty. EXTREMITIES: Lower extremities show deep tendon reflexes 1+ in the patellar and tendo calcaneus tendons. Motor exam is 4 on a scale of 5 with right dorsiflexion, extension, quadriceps and hamstring flexion and 5/5 on the left. Peripheral pulses are 1+ posterior tibial. No peripheral edema is noted bilat erally. Lower extremities are warm and dry. SKIN: Shows warm and dry, good turgor. No edema. No sores, rashes or bruising throughout. Procedure: Procedure: Options discussed with patient. Patient's old chart was reviewed as her current medication regimen updated currently systems updated today as well. We will proceed with a lumbar epidural steroid injection today with fluoroscopic guidance. Risks were discussed including but not limited to: Bleeding, infection, possibility of epidural hematoma and subsequent neurological compromise, dural puncture, headaches, spinal cord and/or nerve damage, side effects of steroid medication, and poor results regarding pain control. Patient understands and wished to proceed. Patient will return to the clinic in approximately 2 weeks for follow-up, was counseled as to return appointment, activity level, and side effect to be aware of. Medication Injected: Med Injected: Procedure is lumbar epidural steroid injection under local anesthetic using sterile prep and drape at the L4-5 level using C-arm fluoroscopic guidance in both AP and lateral views medications injected is 20 mg dexamethasone +10mL preservative-free normal saline and 2 mL contrast- condition at discharge is stable patient tolerated procedure well had no complications. Condition at Discharge: Condition at Discharge: Condition at discharge is stable, patient tolerated procedure well and had no complications. BETHANY HOANG MD Dec 02, 2021 14:22
--- NOTE | 2021-12-02 14:22 | PDOC4 ---
Procedure Note: ICD 10 Code: ICD 10 Code: M54.16 M51.36 M4 8.06 Procedure Note: Patient was consented for lumbar epidural steroid injection with fluoroscopic guidance. Risks were discussed including but not limited to: Bleeding, infection, possibility of epidural hematoma and subsequent neurological compromise, dural puncture, headaches, spinal cord and/or nerve damage, side effects of steroid medication, and poor results regarding pain control. Patient understands and wished to proceed. Procedure is lumbar epidural steroid injection under local anesthetic using nelida rile prep and drape at the L4-5 level using C-arm fluoroscopic guidance in both AP and lateral views medications injected is 20 mg dexamethasone +10mL preservative-free normal saline and 2 mL contrast- condition at discharge is stable patient tolerated procedure well had no complications. BETHANY HOANG MD Dec 02, 2021 14:22
== END | disposition home or self-care (01) ==
LOC: PNCL 13:25
PROVIDERS: ATTEND Anesthesiology
DX: M51.16 Intervertebral disc disorders with radiculopathy, lumbar region (principal); M48.061 Spinal stenosis, lumbar region without neurogenic claudication; I10 Essential (primary) hypertension; E78.00 Pure hypercholesterolemia, unspecified; M19.90 Unspecified osteoarthritis, unspecified site; E11.9 Type 2 diabetes mellitus without complications; M10.9 Gout, unspecified; Z90.710 Acquired absence of both cervix and uterus; Z98.890 Other specified postprocedural states; Z87.891 Personal history of nicotine dependence; Z79.84 Long term (current) use of oral hypoglycemic drugs; Z79.899 Other long term (current) drug therapy
CPT/HCPCS: 62323; J1100; Q9965